=== PATIENT | male | born 1990 | race American Indian/Alaskan Native ===

== ENCOUNTER 2021-09-14 04:12 | Emergency (ER) | payer SELFPAY | END 2021-09-14 13:22 | disposition left against medical advice (07) | LOC: ED 04:12 → EDSTATUS 04:12 → ED 13:22 | DX: S01.319A Laceration without foreign body of unspecified ear, initial encounter (principal); Z53.21 Procedure and treatment not carried out due to patient leaving prior to being seen by health care provider; X58.XXXA Exposure to other specified factors, initial encounter; Y93.89 Activity, other specified; Y92.89 Other specified places as the place of occurrence of the external cause; Y99.8 Other external cause status ==